=== PATIENT | female | born 1960 | race Caucasian/White ===

== ENCOUNTER 2022-04-12 15:52 | Inpatient (IN) ==
[2022-04-13] MEDS ORDERED: Hyoscyamine SL 0.125 MG TAB.SUBL SL PRN (15:13)
[2022-04-13] MEDS ORDERED: Bisacodyl 10 MG RECTAL SUPPOSITORY RC PRN (15:13)
[2022-04-13] MEDS ORDERED: Cyanocobalamin (B-12) 1,000 MCG/ML VIAL IM SCH (15:15)
[2022-04-13] MEDS ORDERED: Ergocalciferol (VIT D2) 50,000 UNIT (1.25MG) CAP PO SCH (15:15)
[2022-04-13] MEDS ORDERED: haloperidoL 1 MG TABLET PO PRN (16:39)
[2022-04-13] MEDS ORDERED: Ondansetron ODT 4 MG TAB.RAPDIS PO PRN (16:40)
[2022-04-13] MEDS: *HR* OxyCODONE Immed Rel 5 MG TABLET PO PRN (16:53)
[2022-04-13] MEDS: *HR* FentaNYL PATCH 12 MCG PATCH TD SCH (16:54)
[2022-04-13] MEDS: Simethicone 80 MG TAB.CHEW PO SCH ×2 (17:02→21:16)
[2022-04-13] MEDS: Furosemide 20 MG TABLET PO SCH (17:03)
[2022-04-13 17:54] LABS: Bilirubin,Urine Negative (Negative); Blood,Urine Moderate (Negative); Clarity,Urine Clear (Clear); Color,Urine Yellow (Yellow); Glucose,Urine (UA) Normal (Normal); Ketones,Urine Negative (Negative); Leukocyte Esterase,Urine Small (Negative); Nitrite,Urine Negative (Negative); Protein,Urine Negative (Neg-Trace); Urobilinogen,Urine Normal (Normal)
[2022-04-13 20:31] LABS: Budding Yeast,Urine Few per hpf (None Seen); RBC,Urine 0-3 per hpf (0-3); Squamous Epithelial Cell,Urine Few per hpf (None-Few); WBC,Urine 0-3 per hpf (0-3)
[2022-04-13] MEDS: Ranolazine 500 MG TAB.ER.12H PO SCH (21:23)
[2022-04-13] MEDS: Pregabalin 50 MG CAPSULE PO SCH (21:25)
[2022-04-13] MEDS: Sennosides 8.6 MG TABLET PO SCH (21:27)
[2022-04-14] MEDS: *HR* OxyCODONE Immed Rel 5 MG TABLET PO PRN ×3 (01:36→22:44)
[2022-04-14 05:35] LABS: Basophils # 0.1 K/mcL (0.0-0.2); Basophils % 1.3 %; Eosinophils # 0.2 K/mcL (0.0-0.6); Eosinophils % 3.5 %; Hematocrit 30.7 % (35.3-44.9); Hemoglobin 7.9 g/dL (11.5-15.4); Immature Granulocytes % 0.7 % (0-4); Lymphocytes # 1.5 K/mcL (0.6-4.6); Lymphocytes % 21.7 %; Mean Corpuscular HGB Conc 25.7 g/dL (31.6-35.5); Mean Corpuscular Hemoglobin 18.3 pg (28.0-33.3); Mean Corpuscular Volume 71.2 fL (83.0-100.0); Monocytes # 0.7 K/mcL (0.0-1.3); Monocytes % 10.3 %; Neutrophils # 4.3 K/mcL (1.6-8.9); Platelet Count 139 K/mcL (140-400); Red Blood Count 4.31 M/mcL (3.82-4.97); Red Cell Distribution Width 29.5 % (11.5-14.5); Segmented Neutrophils % 62.5 %; White Blood Count 6.8 K/mcL (4.3-11.1)
[2022-04-14 05:49] LABS: Calcium 8.8 mg/dL (8.6-10.3); Potassium 3.9 mEq/L (3.5-5.1)
[2022-04-14] MEDS ORDERED: Furosemide 20 MG TABLET PO SCH (09:00)
[2022-04-14] MEDS: Cholecalciferol (D-3) 1,000 UNIT (25MCG) TABLET PO SCH (09:16)
[2022-04-14] MEDS: Sennosides 8.6 MG TABLET PO SCH ×2 (09:16→22:43)
[2022-04-14] MEDS: Simethicone 80 MG TAB.CHEW PO SCH ×4 (09:16→22:44)
[2022-04-14] MEDS: Pregabalin 50 MG CAPSULE PO SCH ×3 (09:17→22:44)
[2022-04-14] MEDS: Ranolazine 500 MG TAB.ER.12H PO SCH ×2 (09:17→22:43)
[2022-04-14] MEDS: Topiramate 25 MG TABLET PO SCH (09:18)
[2022-04-14] MEDS ORDERED: D5% in Water 1,000 ML IVC PRN (14:08)
[2022-04-14] MEDS ORDERED: Dextrose Gel 15 GM/37.5 ML TUBE PO PRN ×2 (14:08)
[2022-04-14] MEDS ORDERED: *HR* Dextrose 50 % in Water (Syg) 50 ML SYRINGE IVP PRN (14:08)
[2022-04-14] MEDS: Furosemide 20 MG TABLET PO SCH ×2 (16:02→17:21)
[2022-04-14] MEDS: Insulin LISPRO 300 UNITS/3 ML VIAL SUBQ SCH ×2 (17:21→22:46)
[2022-04-15] MEDS: *HR* Enoxaparin 40 MG/0.4 ML SYRINGE SQ SCH (06:20)
[2022-04-15] MEDS: Insulin LISPRO 300 UNITS/3 ML VIAL SUBQ SCH ×4 (08:41→21:45)
[2022-04-15] MEDS: Ranolazine 500 MG TAB.ER.12H PO SCH ×2 (08:42→21:24)
[2022-04-15] MEDS: Cholecalciferol (D-3) 1,000 UNIT (25MCG) TABLET PO SCH (08:42)
[2022-04-15] MEDS: Pregabalin 50 MG CAPSULE PO SCH ×2 (08:43→21:23)
[2022-04-15] MEDS: Simethicone 80 MG TAB.CHEW PO SCH ×4 (08:43→21:24)
[2022-04-15] MEDS: Furosemide 20 MG TABLET PO SCH ×2 (08:44→16:57)
[2022-04-15] MEDS: Topiramate 25 MG TABLET PO SCH (08:45)
[2022-04-15] MEDS: Sennosides 8.6 MG TABLET PO SCH ×2 (08:51→21:28)
[2022-04-15 15:39] LABS: Calcium 9.3 mg/dL (8.6-10.3); Magnesium 0.9 mg/dL (1.6-2.6); Potassium 4.1 mEq/L (3.5-5.1)
[2022-04-16] MEDS: *HR* Enoxaparin 40 MG/0.4 ML SYRINGE SQ SCH (04:58)
[2022-04-16 05:16] LABS: Basophils # 0.1 K/mcL (0.0-0.2); Basophils % 1.2 %; Eosinophils # 0.2 K/mcL (0.0-0.6); Eosinophils % 3.5 %; Hematocrit 31.1 % (35.3-44.9); Hemoglobin 8.3 g/dL (11.5-15.4); Immature Granulocytes % 0.4 % (0-4); Lymphocytes # 1.1 K/mcL (0.6-4.6); Lymphocytes % 22.2 %; Mean Corpuscular HGB Conc 26.7 g/dL (31.6-35.5); Mean Corpuscular Hemoglobin 18.7 pg (28.0-33.3); Mean Corpuscular Volume 70.2 fL (83.0-100.0); Monocytes # 0.6 K/mcL (0.0-1.3); Monocytes % 11.7 %; Platelet Count 101 K/mcL (140-400); Red Blood Count 4.43 M/mcL (3.82-4.97); Red Cell Distribution Width 29.5 % (11.5-14.5); White Blood Count 4.9 K/mcL (4.3-11.1)
[2022-04-16 05:33] LABS: Calcium 9.3 mg/dL (8.6-10.3); Magnesium 1.7 mg/dL (1.6-2.6); Potassium 3.9 mEq/L (3.5-5.1)
[2022-04-16] MEDS: Cholecalciferol (D-3) 1,000 UNIT (25MCG) TABLET PO SCH (08:27)
[2022-04-16] MEDS: Ranolazine 500 MG TAB.ER.12H PO SCH ×2 (08:27→20:13)
[2022-04-16] MEDS: Simethicone 80 MG TAB.CHEW PO SCH ×4 (08:28→20:14)
[2022-04-16] MEDS: Topiramate 25 MG TABLET PO SCH (08:29)
[2022-04-16] MEDS: Sennosides 8.6 MG TABLET PO SCH ×2 (08:29→20:15)
[2022-04-16] MEDS: Pregabalin 50 MG CAPSULE PO SCH ×2 (08:29→20:14)
[2022-04-16] MEDS: Furosemide 20 MG TABLET PO SCH ×2 (08:30→16:55)
[2022-04-16] MEDS: Insulin LISPRO 300 UNITS/3 ML VIAL SUBQ SCH ×4 (08:30→20:12)
[2022-04-16] MEDS: *HR* OxyCODONE Immed Rel 5 MG TABLET PO PRN ×2 (14:07→20:13)
[2022-04-16] MEDS: *HR* FentaNYL PATCH 12 MCG PATCH TD SCH (14:07)
[2022-04-16 16:46] LABS: Estimated Average Glucose 192 mg/dl; Hemoglobin A1C 8.3 %
[2022-04-16] MEDS ORDERED: Insulin DETEMIR 100 UNIT/ML per UNIT SUBQ ONE (21:00)
[2022-04-17] MEDS: *HR* OxyCODONE Immed Rel 5 MG TABLET PO PRN (04:18)
[2022-04-17] MEDS: *HR* Enoxaparin 40 MG/0.4 ML SYRINGE SQ SCH (04:18)
[2022-04-17 04:55] LABS: Hematocrit 32.1 % (35.3-44.9); Hemoglobin 8.7 g/dL (11.5-15.4); Mean Corpuscular HGB Conc 27.1 g/dL (31.6-35.5); Mean Corpuscular Hemoglobin 19.1 pg (28.0-33.3); Mean Corpuscular Volume 70.5 fL (83.0-100.0); Platelet Count 106 K/mcL (140-400); Red Blood Count 4.55 M/mcL (3.82-4.97); Red Cell Distribution Width 29.3 % (11.5-14.5); White Blood Count 4.9 K/mcL (4.3-11.1)
[2022-04-17 05:11] LABS: Albumin 3.7 g/dL (3.5-5.7); Albumin/Globulin Ratio 1.3 (1.1-2.2); Bilirubin,Total 0.5 mg/dL (0.3-1.0); Calcium 9.4 mg/dL (8.6-10.3); Globulin 2.8 g/dL (2.4-3.5); Magnesium 1.7 mg/dL (1.6-2.6); Potassium 4.2 mEq/L (3.5-5.1); Total Protein 6.5 g/dL (6.4-8.9)
[2022-04-17] MEDS: Insulin LISPRO 300 UNITS/3 ML VIAL SUBQ SCH ×4 (08:45→19:42)
[2022-04-17] MEDS: Cholecalciferol (D-3) 1,000 UNIT (25MCG) TABLET PO SCH (08:46)
[2022-04-17] MEDS: Furosemide 20 MG TABLET PO SCH ×2 (08:46→16:58)
[2022-04-17] MEDS: Simethicone 80 MG TAB.CHEW PO SCH ×4 (08:46→19:43)
[2022-04-17] MEDS: Pregabalin 50 MG CAPSULE PO SCH ×2 (08:47→19:42)
[2022-04-17] MEDS: Ranolazine 500 MG TAB.ER.12H PO SCH ×2 (08:47→19:43)
[2022-04-17] MEDS: Sennosides 8.6 MG TABLET PO SCH ×2 (08:48→19:43)
[2022-04-17] MEDS: Topiramate 25 MG TABLET PO SCH (08:48)
[2022-04-17] MEDS: Insulin DETEMIR 100 UNIT/ML X5UNITS SUBQ SCH ×3 (08:48→19:43)
[2022-04-17] MEDS: Magnesium Oxide 400 MG TABLET PO SCH (20:44)
[2022-04-18] MEDS: *HR* Enoxaparin 40 MG/0.4 ML SYRINGE SQ SCH (04:08)
[2022-04-18 04:27] LABS: Hematocrit 29.3 % (35.3-44.9); Hemoglobin 7.9 g/dL (11.5-15.4); Mean Corpuscular Hemoglobin 19.1 pg (28.0-33.3); Mean Corpuscular Volume 70.9 fL (83.0-100.0); Platelet Count 108 K/mcL (140-400); Red Blood Count 4.13 M/mcL (3.82-4.97); Red Cell Distribution Width 29.2 % (11.5-14.5); White Blood Count 4.5 K/mcL (4.3-11.1)
[2022-04-18 04:42] LABS: Calcium 8.9 mg/dL (8.6-10.3); Magnesium 1.7 mg/dL (1.6-2.6); Potassium 3.9 mEq/L (3.5-5.1)
[2022-04-18] MEDS: Insulin DETEMIR 100 UNIT/ML X5UNITS SUBQ SCH ×2 (08:24→19:19)
[2022-04-18] MEDS: Sennosides 8.6 MG TABLET PO SCH ×2 (08:24→19:20)
[2022-04-18] MEDS: Cholecalciferol (D-3) 1,000 UNIT (25MCG) TABLET PO SCH (08:29)
[2022-04-18] MEDS: Magnesium Oxide 400 MG TABLET PO SCH ×2 (08:30→19:21)
[2022-04-18] MEDS: Furosemide 20 MG TABLET PO SCH ×2 (08:30→16:23)
[2022-04-18] MEDS: Ranolazine 500 MG TAB.ER.12H PO SCH ×2 (08:30→19:21)
[2022-04-18] MEDS: Pregabalin 50 MG CAPSULE PO SCH ×2 (08:30→19:21)
[2022-04-18] MEDS: Topiramate 25 MG TABLET PO SCH (08:31)
[2022-04-18] MEDS: Simethicone 80 MG TAB.CHEW PO SCH ×4 (08:33→19:20)
[2022-04-18] MEDS: Insulin LISPRO 300 UNITS/3 ML VIAL SUBQ SCH ×4 (08:34→19:18)
[2022-04-18] MEDS: *HR* OxyCODONE Immed Rel 5 MG TABLET PO PRN ×2 (08:42→16:23)
[2022-04-18] MEDS: Artificial Tears SOLN 15 ML BOTTLE LEFT EYE PRN (19:22)
[2022-04-18] MEDS: Carbamide Peroxide 150 DROP/15 ML BOTTLE RIGHT EAR SCH (20:27)
[2022-04-19] MEDS: *HR* Enoxaparin 40 MG/0.4 ML SYRINGE SQ SCH (04:12)
[2022-04-19] MEDS: *HR* OxyCODONE Immed Rel 5 MG TABLET PO PRN ×2 (04:12→17:09)
[2022-04-19 05:06] LABS: Calcium 9.1 mg/dL (8.6-10.3); Magnesium 1.4 mg/dL (1.6-2.6)
[2022-04-19] MEDS: Simethicone 80 MG TAB.CHEW PO SCH ×4 (08:36→19:36)
[2022-04-19] MEDS: Pregabalin 50 MG CAPSULE PO SCH ×2 (08:38→19:37)
[2022-04-19] MEDS: Magnesium Oxide 400 MG TABLET PO SCH ×2 (08:38→19:38)
[2022-04-19] MEDS: Furosemide 20 MG TABLET PO SCH ×2 (08:38→17:03)
[2022-04-19] MEDS: Topiramate 25 MG TABLET PO SCH (08:38)
[2022-04-19] MEDS: Ranolazine 500 MG TAB.ER.12H PO SCH ×2 (08:38→19:37)
[2022-04-19] MEDS: Cholecalciferol (D-3) 1,000 UNIT (25MCG) TABLET PO SCH (08:39)
[2022-04-19] MEDS: Insulin DETEMIR 100 UNIT/ML X5UNITS SUBQ SCH ×2 (08:40→19:38)
[2022-04-19] MEDS: Insulin LISPRO 300 UNITS/3 ML VIAL SUBQ SCH ×4 (08:40→19:38)
[2022-04-19] MEDS: Carbamide Peroxide 150 DROP/15 ML BOTTLE RIGHT EAR SCH ×2 (08:41→19:38)
[2022-04-19] MEDS: Sennosides 8.6 MG TABLET PO SCH ×2 (08:57→19:37)
[2022-04-19] MEDS: Artificial Tears SOLN 15 ML BOTTLE LEFT EYE PRN ×2 (08:59→19:39)
[2022-04-19] MEDS: *HR* FentaNYL PATCH 12 MCG PATCH TD SCH (14:05)
[2022-04-20] MEDS: *HR* Enoxaparin 40 MG/0.4 ML SYRINGE SQ SCH (04:53)
[2022-04-20 05:14] LABS: Basophils # 0.1 K/mcL (0.0-0.2); Basophils % 1.2 %; Eosinophils # 0.1 K/mcL (0.0-0.6); Hematocrit 29.4 % (35.3-44.9); Immature Granulocytes % 0.3 % (0-4); Lymphocytes # 1.2 K/mcL (0.6-4.6); Lymphocytes % 19.7 %; Mean Corpuscular HGB Conc 27.2 g/dL (31.6-35.5); Mean Corpuscular Hemoglobin 19.2 pg (28.0-33.3); Mean Corpuscular Volume 70.5 fL (83.0-100.0); Monocytes # 0.7 K/mcL (0.0-1.3); Monocytes % 11.9 %; Neutrophils # 3.9 K/mcL (1.6-8.9); Platelet Count 119 K/mcL (140-400); Red Blood Count 4.17 M/mcL (3.82-4.97); Red Cell Distribution Width 28.8 % (11.5-14.5); Segmented Neutrophils % 64.9 %; White Blood Count 6.1 K/mcL (4.3-11.1)
[2022-04-20 05:33] LABS: Albumin 3.4 g/dL (3.5-5.7); Albumin/Globulin Ratio 1.4 (1.1-2.2); Bilirubin,Total 0.5 mg/dL (0.3-1.0); Globulin 2.5 g/dL (2.4-3.5); Potassium 3.8 mEq/L (3.5-5.1); Total Protein 5.9 g/dL (6.4-8.9)
[2022-04-20] MEDS: Pregabalin 50 MG CAPSULE PO SCH ×2 (07:57→20:49)
[2022-04-20] MEDS: Ranolazine 500 MG TAB.ER.12H PO SCH ×2 (07:58→20:48)
[2022-04-20] MEDS: Furosemide 20 MG TABLET PO SCH ×2 (07:58→16:39)
[2022-04-20] MEDS: Cholecalciferol (D-3) 1,000 UNIT (25MCG) TABLET PO SCH (07:58)
[2022-04-20] MEDS: Simethicone 80 MG TAB.CHEW PO SCH ×4 (07:59→20:48)
[2022-04-20] MEDS: Topiramate 25 MG TABLET PO SCH (07:59)
[2022-04-20] MEDS: Sennosides 8.6 MG TABLET PO SCH ×2 (07:59→20:48)
[2022-04-20] MEDS: Magnesium Oxide 400 MG TABLET PO SCH ×2 (07:59→20:49)
[2022-04-20] MEDS: Insulin LISPRO 300 UNITS/3 ML VIAL SUBQ SCH ×4 (08:01→20:47)
[2022-04-20] MEDS: Carbamide Peroxide 150 DROP/15 ML BOTTLE RIGHT EAR SCH ×2 (08:01→20:49)
[2022-04-20] MEDS: Insulin DETEMIR 100 UNIT/ML X5UNITS SUBQ SCH ×2 (09:07→20:48)
[2022-04-20] MEDS ORDERED: Ergocalciferol (VIT D2) 50,000 UNIT (1.25MG) CAP PO SCH (15:00)
[2022-04-20] MEDS: *HR* OxyCODONE Immed Rel 5 MG TABLET PO PRN ×2 (15:11→21:04)
[2022-04-21] MEDS: *HR* Enoxaparin 40 MG/0.4 ML SYRINGE SQ SCH (05:20)
[2022-04-21 05:39] LABS: Hematocrit 29.2 % (35.3-44.9); Hemoglobin 7.9 g/dL (11.5-15.4); Immature Granulocytes % 0.4 % (0-4); Lymphocytes % 23.1 %; Mean Corpuscular HGB Conc 27.1 g/dL (31.6-35.5); Mean Corpuscular Hemoglobin 19.3 pg (28.0-33.3); Mean Corpuscular Volume 71.2 fL (83.0-100.0); Monocytes % 12.5 %; Platelet Count 133 K/mcL (140-400); Red Cell Distribution Width 28.9 % (11.5-14.5); Segmented Neutrophils % 60.4 %; White Blood Count 5.6 K/mcL (4.3-11.1)
[2022-04-21 05:40] LABS: Basophils # 0.1 K/mcL (0.0-0.2); Basophils % 0.9 %; Eosinophils # 0.2 K/mcL (0.0-0.6); Eosinophils % 2.7 %; Lymphocytes # 1.3 K/mcL (0.6-4.6); Monocytes # 0.7 K/mcL (0.0-1.3); Neutrophils # 3.4 K/mcL (1.6-8.9)
[2022-04-21 05:47] LABS: Anisocytosis 1+ (Not Present); Platelet Estimate Normal (Normal); Poikilocytosis 1+ (Not Present)
[2022-04-21 05:56] LABS: Albumin 3.4 g/dL (3.5-5.7); Albumin/Globulin Ratio 1.4 (1.1-2.2); Bilirubin,Total 0.4 mg/dL (0.3-1.0); Calcium 9.1 mg/dL (8.6-10.3); Globulin 2.5 g/dL (2.4-3.5); Magnesium 1.5 mg/dL (1.6-2.6); Potassium 3.7 mEq/L (3.5-5.1); Total Protein 5.9 g/dL (6.4-8.9)
[2022-04-21 07:13] VITALS: BP 153/81; PULSE 102; RESP 16; TEMP 98.1; O2SAT 93
[2022-04-21] MEDS: Pregabalin 50 MG CAPSULE PO SCH (07:53)
[2022-04-21] MEDS: Magnesium Oxide 400 MG TABLET PO SCH (07:53)
[2022-04-21] MEDS: Furosemide 20 MG TABLET PO SCH (07:53)
[2022-04-21] MEDS: Topiramate 25 MG TABLET PO SCH (07:54)
[2022-04-21] MEDS: Insulin DETEMIR 100 UNIT/ML X5UNITS SUBQ SCH (07:55)
[2022-04-21] MEDS: Cholecalciferol (D-3) 1,000 UNIT (25MCG) TABLET PO SCH (07:55)
[2022-04-21] MEDS: Simethicone 80 MG TAB.CHEW PO SCH ×2 (07:55→12:26)
[2022-04-21] MEDS: Ranolazine 500 MG TAB.ER.12H PO SCH (07:55)
[2022-04-21] MEDS: Insulin LISPRO 300 UNITS/3 ML VIAL SUBQ SCH ×2 (07:55→12:26)
[2022-04-21] MEDS: Carbamide Peroxide 150 DROP/15 ML BOTTLE RIGHT EAR SCH (07:56)
[2022-04-21] MEDS: Sennosides 8.6 MG TABLET PO SCH (07:56)
== END 2022-04-21 14:28 | disposition hospice, home (50) | DRG 698 ==
LOC: INPGRE 04-13 12:59
PROVIDERS: ADMIT Family Medicine; ATTEND Family Medicine